=== PATIENT | female | born 1975 | race Hispanic/Latino ===

== ENCOUNTER → 2019-07-31 | Outpatient (CLI) | payer OTHER | END | disposition home or self-care (01) | LOC: RAH 10:43 | PROVIDERS: ATTEND Internal Medicine | DX: R05 Cough (principal); E66.01 Morbid (severe) obesity due to excess calories; M47.814 Spondylosis without myelopathy or radiculopathy, thoracic region; Z90.49 Acquired absence of other specified parts of digestive tract | CPT/HCPCS: 36415; 71046; 84443 ==

== ENCOUNTER → 2021-01-13 | Outpatient (CLI) | payer OTHER ==
[2021-01-13 14:51] LABS: BASOPHILS % (AUTO) 0.4 % (0.0-5.0); EOSINOPHILS % (AUTO) 0.6 % (0.0-8.0); HEMATOCRIT 42.1 % (36-48); LYMPHOCYTES % (AUTO) 22.4 % (21.0-51.0); MEAN CORPUSCULAR HEMOGLOBIN 27.4 pg (27.0-33.0); MEAN CORPUSCULAR VOLUME 82.9 fL (79-99); MONOCYTES % (AUTO) 5.7 % (3.0-13.0); NEUTROPHILS % (AUTO) 70.8 % (40.0-77.0); PLATELET COUNT (AUTO) 220 K/uL (130-400); RED BLOOD CELL COUNT(AUTO) 5.08 MIL/uL (4.00-5.50); RED CELL DISTRIBUTION WIDTH 12.8 % (11.0-15.5); WHITE BLOOD COUNT (AUTO) 8.5 K/uL (4.8-10.8)
[2021-01-13 15:03] LABS: CREATININE 0.8 mg/dL (0.5-1.5); POTASSIUM 4.3 mmol/L (3.5-5.1)
== END | disposition home or self-care (01) ==
LOC: RAH 12:55
PROVIDERS: ATTEND Surgery
DX: Z01.818 Encounter for other preprocedural examination (principal); G47.33 Obstructive sleep apnea (adult) (pediatric); K21.9 Gastro-esophageal reflux disease without esophagitis; E11.9 Type 2 diabetes mellitus without complications; E78.00 Pure hypercholesterolemia, unspecified; K76.0 Fatty (change of) liver, not elsewhere classified; E66.01 Morbid (severe) obesity due to excess calories
CPT/HCPCS: 36415; 71046; 80048; 85025; 97802

== ENCOUNTER 2021-01-28 05:30 | Inpatient (IN) | payer OTHER ==
[2021-01-21 15:18] LABS: BASOPHILS % (AUTO) 0.3 % (0.0-5.0); EOSINOPHILS % (AUTO) 0.7 % (0.0-8.0); HEMATOCRIT 42.2 % (36-48); LYMPHOCYTES % (AUTO) 21.4 % (21.0-51.0); MEAN CORPUSCULAR HEMOGLOBIN 27.3 pg (27.0-33.0); MEAN CORPUSCULAR HGB CONC 32.2 g/dL (32.0-36.0); MEAN CORPUSCULAR VOLUME 84.6 fL (79-99); NEUTROPHILS % (AUTO) 71.4 % (40.0-77.0); PLATELET COUNT (AUTO) 212 K/uL (130-400); RED BLOOD CELL COUNT(AUTO) 4.99 MIL/uL (4.00-5.50); WHITE BLOOD COUNT (AUTO) 8.9 K/uL (4.8-10.8)
[2021-01-21 15:31] LABS: CREATININE 0.7 mg/dL (0.5-1.5); POTASSIUM 4.3 mmol/L (3.5-5.1)
[2021-01-25 09:20] VITALS: BP 125/71
[2021-01-27 10:06] VITALS: BP 139/73
[2021-01-28] VITALS (21 sets, daily range): BP systolic 112–151; BP diastolic 67–84
[~2021-01-28] VITALS: Ht 172.7 cm; Wt 136.5 kg
[~2021-01-28 05:30] MED LIST: AEC81 PO; ATOR20TA65 PO; BETA15OI2 TP; ERGO500014 PO; FAMO40TA75 PO; GLIP10TA9 PO; HYDR-3421 PO; IBUP-2077 PO; METF-446 PO; MONT10TA32 PO; TRIA60LO11 TP; ZINC220T4 PO; [UNRECOGNIZED DRUG - CODE] TP
[2021-01-28] MEDS ORDERED: SODIUM CHLORIDE 0.9% 1000ML 1,000 ML IV ONE (05:33)
[2021-01-28] MEDS ORDERED: BUPIVACAINE/EPI/PF 0.5% 30ML VIAL IJ ONE (06:01)
[2021-01-28] MEDS ORDERED: METHYLENE BLUE 5 MG/ML AMP ONE (06:01)
[2021-01-28] MEDS ORDERED: SCOPOLAMINE HYDROBROMIDE 1 EACH ADH..PATCH TD ONE (06:19)
[2021-01-28] MEDS ORDERED: KETAMINE 50MG/ML SYRINGE 50 MG/ML DISP.SYRIN IV ONE (06:20)
[2021-01-28] MEDS ORDERED: SUCCINYLCHOLINE 200MG/10ML SYR ONE (06:22)
[2021-01-28] MEDS ORDERED: MIDAZOLAM HCL 1 MG/ML 2ML VIAL ONE (06:22)
[2021-01-28] MEDS ORDERED: PROPOFOL 10 MG/ML 20ML VIAL IV ONE ×2 (06:22→06:52)
[2021-01-28] MEDS ORDERED: LIDOCAINE PF 2% 5ML ABBOJECT ONE (06:22)
[2021-01-28] MEDS ORDERED: ROCURONIUM 10MG/1ML SYR 10 MG/ML ML ONE (06:23)
[2021-01-28] MEDS ORDERED: FENTANYL CITRATE PF 50 MCG/1 ML 2ML VIAL ONE (06:23)
[2021-01-28] MEDS ORDERED: ONDANSETRON HCL 4 MG/2 ML VIAL ONE (06:25)
[2021-01-28] MEDS: CEFOXITIN SODIUM 2 GM VIAL ONE ×2 (06:30→06:44)
[2021-01-28] MEDS: DEXMEDETOMIDINE HCL 200 MCG in SODIUM CHLORIDE 0.9% 50 ML IV SCH ×2 (06:30→19:51)
[2021-01-28] MEDS: HEPARIN SODIUM 5000UNIT/ML 1ML VIAL ONE ×2 (06:30→06:45)
[2021-01-28] MEDS ORDERED: DEXAMETHASONE SOD PHOSPHATE 10MG/ML 1ML VIAL ONE (06:58)
[2021-01-28] MEDS ORDERED: EPHEDRINE SULFATE 50 MG/ML AMPULE ONE (07:05)
[2021-01-28] MEDS ORDERED: HEPARIN SODIUM 5000UNIT/ML 1ML VIAL SQ PRN (08:00)
[2021-01-28] MEDS ORDERED: LACTATED RINGERS 1000ML 1,000 ML IV SCH (08:00)
[2021-01-28] MEDS ORDERED: CEFOXITIN SODIUM 2 GM VIAL IVP PRN (08:00)
[2021-01-28] MEDS ORDERED: GLYCOPYRROLATE 1 MG/5 ML SYRINGE ONE (08:03)
[2021-01-28] MEDS ORDERED: NEOSTIGMINE 5MG/5ML SYR IV ONE (08:03)
[2021-01-28] MEDS ORDERED: MEPERIDINE-PF 25 MG/ML SYG ONE ×2 (08:48→08:57)
[2021-01-28] MEDS ORDERED: MORPHINE SULFATE 4 MG/1ML SYG IV PRN (12:00)
[2021-01-28] MEDS ORDERED: KETOROLAC TROMETHAMINE 30MG/ML IV PRN (12:00)
[2021-01-28] MEDS ORDERED: ONDANSETRON HCL 4 MG/2 ML VIAL IVP PRN (12:00)
[2021-01-28] MEDS ORDERED: HYDROCODONE/ACETAMINOPHEN 7.5/325 MG 15 ML UDCUP PO PRN (12:00)
[2021-01-28] MEDS ORDERED: MORPHINE SULFATE 2 MG/ML 1ML SYG IVP PRN (12:00)
[2021-01-28] MEDS ORDERED: PROCHLORPERAZINE EDISYLATE 10 MG/2 ML VIAL IV PRN (12:00)
[2021-01-28] MEDS ORDERED: PHARMACY COMMUNICATION MISC SCH (12:15)
[2021-01-28] MEDS: HYDROCODONE/ACETAMINOPHEN 7.5/325 MG 15 ML UDCUP PO PRN ×2 (15:31→21:26)
[2021-01-28] MEDS ORDERED: INSULIN HUMULIN R 100 UNIT/ML 3ML SQ SCH (16:30)
[2021-01-28] MEDS: INSULIN HUMULIN R 100 UNIT/ML 3ML SQ SCH (18:35)
[2021-01-28] MEDS: ENOXAPARIN SODIUM 30 MG/0.3 ML SQ SCH (19:57)
[2021-01-29] MEDS: INSULIN HUMULIN R 100 UNIT/ML 3ML SQ SCH ×3 (00:07→11:43)
[2021-01-29 04:00] VITALS: BP 115/69
[2021-01-29 07:30] VITALS: BP 125/70
[2021-01-29 11:00] VITALS: BP 124/82
[2021-01-29] MEDS: ENOXAPARIN SODIUM 30 MG/0.3 ML SQ SCH (11:13)
== END 2021-01-29 16:16 | disposition home or self-care (01) | DRG 621 ==
LOC: DAH 05:30 → DAHIP 05:31 → 4AH 11:42
PROVIDERS: ADMIT Surgery; ATTEND Surgery
PROC: 0DB64Z3 Excision of Stomach, Percutaneous Endoscopic Approach, Vertical (ICD-10-PCS; principal; 2021-01-28 06:59)
DX: E66.01 Morbid (severe) obesity due to excess calories (principal); E78.5 Hyperlipidemia, unspecified; I10 Essential (primary) hypertension; E11.9 Type 2 diabetes mellitus without complications; Z20.822 Contact with and (suspected) exposure to COVID-19; Z68.42 Body mass index [BMI] 45.0-49.9, adult
CPT/HCPCS: 36415; 80048; 82948; 85025; G0378; J0330; J0694; J1100; J1644; J1650; J1815; J2001; J2175; J2250; J2405; J2704; J2710; J3010; J3490; J7030; Q9968; U0003